=== PATIENT | male | born 1990 | race Caucasian/White ===

== ENCOUNTER 2019-04-21 19:46 | Emergency (ER) | payer BC ==
[~2019-04-21] VITALS: Ht 167.6 cm; Wt 102.3 kg
[2019-04-21 19:53] VITALS: Ht 167.6 cm; Wt 102.3 kg
[2019-04-21] MEDS ORDERED: ZITHROMAX250 MG PO (19:54)
[2019-04-21 20:18] LABS: BASOPHILS 0.3 % (0-2); EOSINOPHILS 4.4 % (0-7); HEMATOCRIT 41.9 % (42.0-54.0); HEMOGLOBIN 14.8 g/dL (13.5-17.5); IMMATURE GRANULOCYTES 0.4 % (0-5); LYMPHOCYTES 31.6 % (15-50); MCH 31.4 pg (26.0-34.0); MCHC 35.3 g/dL (31.0-37.0); MCV 88.8 fL (80.0-100.0); MEAN PLATELET VOLUME 9.1 fL (7.4-10.4); NEUTROPHILS 55.3 % (40-80); PLATELET COUNT 255 10x3/uL (130-400); RBC 4.72 10x6/uL (4.20-6.10); RDW 12.3 % (11.5-14.5); WBC 11.2 10x3/uL (4.8-10.8)
[2019-04-21 20:27] LABS: APTT 29.2 SECONDS (22.8-39.4); INR 0.95 (0.85-1.17); PROTIME 12.2 SECONDS (11.6-15.0)
[2019-04-21 20:34] LABS: ALBUMIN 3.7 g/dL (3.4-5.0); ALKALINE PHOSPHATASE 83 U/L (46-116); ALT (SGPT) 63 U/L (10-68); BILIRUBIN - TOTAL 0.26 mg/dL (0.2-1.3); CALC OSMOLALITY 275 mosm/kg (275-300); CALCIUM 9.1 mg/dL (8.5-10.1); CARBON DIOXIDE 31.1 mmol/L (21.0-32.0); CHLORIDE - SERUM 103 mmol/L (98-107); CREATININE - SERUM 0.9 mg/dL (0.6-1.3); GLUCOSE 82 mg/dL (74-106); POTASSIUM - SERUM 3.7 mmol/L (3.5-5.1); PROTEIN - SERUM 7.9 g/dL (6.4-8.2); SODIUM 139 mmol/L (136-145); UREA NITROGEN 9 mg/dL (7-18); eGFR NON AFRICAN AMERICAN > 90 mL/min (90-120)
[2019-04-21 20:45] LABS: CKMB 0.4 U/L (0.0-3.6); CREATINE KINASE 94 UL (21-232)
[2019-04-21 20:55] LABS: TROPONIN-I < 0.017 ng/mL (0.000-0.060)
[2019-04-22] MEDS ORDERED: ZANTAC300 MG PO (00:15)
[2019-04-22 00:28] VITALS: BP 122/71
== END 2019-04-22 00:28 | disposition home or self-care (01) ==
LOC: D.ER 19:46
PROVIDERS: Family Medicine
DX: R07.9 Chest pain, unspecified (principal); K21.9 Gastro-esophageal reflux disease without esophagitis; F17.210 Nicotine dependence, cigarettes, uncomplicated